=== PATIENT | female | born 1995 | race Caucasian/White ===

== ENCOUNTER 2017-06-19 03:59 | Emergency (ER) | payer BC, OTHER ==
[~2017-06-19] VITALS: Ht 170.2 cm; Wt 68.0 kg
--- NOTE | ~2017-06-19 | EKG ---
[place] [address] [facility] [place] [address] ELECTROCARDIOGRAM REPORT Name: MARTINPAMELA Room #: DEP Jose#: [id number] Admission: 06/19/17 Attend Phys: Discharge: 06/19/17 Date of : [birth year] Report #: [id number] THIS REPORT FOR: //name// [facility] ED Test Date: 2017-06-19 Test Time: 04:03:54 Pat Name: PAMELA SALAZAR Department: Room: Gender: F Yard Clerk: MAURICIO : 1995 Requested By: [place] Order Number: [id number] MD: Nikolas Larson Measurements Intervals [place] Rate: 76 P: 60 [place]: 202 QRS: 66 QRSD: 99 T: 59 QT: 394 QTc: 444 Interpretive Statements Sinus rhythm Borderline prolonged [place] interval No previous ECG available for comparison Electronically Signed On 06-19-2017 8:30:30 CDT by Nikolas Larson [email or web address] <ELECTRONICALLY SIGNED> By: Nikolas Larson MD, [facility] 06/19/17 0830 [id number] Nikolas Larson MD, FACC /EPI
[2017-06-19] MEDS ORDERED: PEPCID20 MG PO (05:12)
[2017-06-19 05:43] VITALS: BP 111/66
== END 2017-06-19 05:43 | disposition home or self-care (01) ==
LOC: ER 03:59
DX: R07.89 Other chest pain (principal); K21.9 Gastro-esophageal reflux disease without esophagitis